=== PATIENT | female | born 1930 | race Caucasian/White ===

== ENCOUNTER → 2019-11-16 | Outpatient (CLI) | payer MEDICARE, OTHER ==
[~2019-11-16] MED LIST: ACET-897 PO; AMLO10TA PO; FOLBTAB3 PO; HYDR100T PO; METO1TAB33 PO; PANT40TA3 PO; ROSU5TAB5 PO; VENL37.598 PO; VITA250T4 PO; ZETI10TA16 PO
--- NOTE | 2019-11-18 13:39 | RADONC ---
RADIATION ONCOLOGY CONSULTATION NOTE DATE: 11/16/2019 This is a telemedicine visit. The patient was informed of the risks including security breech, technological failure, inability to perform a comprehensive physical exam which could delay or prevent an accurate diagnosis, and potential complications from treatment decisions rendered over a telemedicine platform. The patient understands and consented to the use of telehealth services phone only. 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 ECOG PERFORMANCE STATUS: Not evaluated. TELEPHONE CONSULTATION: Ms. 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 HISTORY OF PRESENT ILLNESS: The patient reports that she was in her usual state of health until Friday when she began developing vaginal bleeding. She reported that there was a significant amount of bleeding. She has a long history of a prolapsed uterus. She did present to the [facility] and hemoglobin was undertaken and found to be 7.7. A CT scan was done without contrast, which showed left-sided hydroureter and hydronephrosis. This was accompanied by a left-sided bladder mass and a cervix/vaginal mass. She was sent to [facility] and examination under anesthesia was undertaken on 11/05/2019, which revealed a bladder lesion consisting of poorly differentiated adenocarcinoma consistent with a cervical primary. Her cervical biopsy also revealed poorly differentiated carcinoma consistent with cervical primary. The examination showed extensive tumor involving the cervix to the degree that it was difficult to appreciate the os. The tumor was fixed to the left side wall consistent with her left hydroureter. The left anterior vault was involved consistent with her bladder biopsy being positive for tumor as well. There was noted to be a separate palpable disease from the tumor mass at the level of the distal rectovaginal septum. The rectal mucosa did not appear to be involved. She was therefore diagnosed with bulky pelvic disease at least stage IV A. A PET scan has not been done at this point, and I do not have a copy of the CT scan or the image from the CT scan. PAST MEDICAL HISTORY: The patient's past medical history is positive for arthritis, coronary artery disease, hypertension. She had a previous breast surgery as well as an abdominal surgery. She has had an ERCP in the past. ALLERGIES: The patient has NO KNOWN DRUG ALLERGIES. SOCIAL HISTORY: The patient does not smoke cigarettes nor abuse alcohol. FAMILY HISTORY: The patient's family history is positive for a mother with breast cancer, a father with a brain tumor and a sister with liver cancer. REVIEW OF SYSTEMS: The patient's review of systems is positive for a 35 pound weight loss over the past few months. At this time, she is having no pain or bleeding. A review of systems is otherwise noncontributory. Denies nausea, vomiting, fevers, chills, night sweats, diplopia, headaches, anxiety or depression, anorexia, visual disturbances, chest pain, urinary or bowel difficulties, bone pain, or neurological problems. PHYSICAL EXAMINATION: Physical examination was deferred at this point as per COVID-19 precautions. This was a telephone consultation. Full pelvic examination however was done by her referring doctor, Dr. Soares, at the hospital. ASSESSMENT: I had a lengthy discussion with this patient and her family by telephone. I discussed the need of a PET scan to further evaluate her present stage of disease and help us define our radiation flores. Clearly the goal of this treatment at this point would be palliative in nature. If the CT scan were to show no evidence of metastatic disease, there would be an option for more aggressive therapy if this woman were to choose so. Considering her advanced age however, and the very small likelihood of obtaining such a cure she does not wish to pursue that option. Indeed, she was questioning doing anything at all whatsoever. In light of the fact that she did have a significant bleed recently as well as pain, she is willing to undertake just palliative radiation therapy in attempt to postpone the recurrence of those issues. Once I obtain the results of the PET scan further discussion will be undertaken. At this time treatment is palliative in nature. Further discussion can then be undertaken with regards to systemic therapy but considering her advanced age I think her decision is reasonable to limit her treatment. I will continue to follow this patient closely and will keep you informed as any new developments as they occur. As always, warm regards. cc: MD Brent Lee Jr., MD
== END ==
LOC: M ONCR 13:09
PROVIDERS: ATTEND Radiology Radiation Oncology
DX: C53.9 Malignant neoplasm of cervix uteri, unspecified (principal); I10 Essential (primary) hypertension; I25.10 Atherosclerotic heart disease of native coronary artery without angina pectoris

== ENCOUNTER → 2019-11-23 | Outpatient (CLI) | payer MEDICARE, OTHER ==
--- NOTE | 2019-11-23 23:22 | REP ---
PET/CT: HISTORY: Staging cervical carcinoma. COMPARISON: CT study abdomen and pelvis 11/03/2019 from [facility]. TECHNIQUE: 47 minutes following the intravenous injection of a 8.97 mCi dose of F-18 FDG, three-dimensional PET scintigraphy is acquired from the skull base to the proximal thighs. Triplanar noncontrast CT scanning is acquired through the same anatomic range for attenuation correction, and image registration with scan parameters optimized to minimize radiation exposure to the patient. PET scintigraphy and CT datasets were fused and displayed on a workstation with multiplanar and projection display capability. PET/CT FINDINGS: Head and neck soft tissues are unremarkable. There is no abnormal hypermetabolic uptake within the chest. Normal variant skeletal muscle uptake is seen about the shoulders. There are small bilateral pleural effusions. There is visible uptake in the pleural effusions, but no hypermetabolic level uptake is seen. Maximum standard uptake value 2.01. No abnormal pulmonary parenchymal hypermetabolic uptake is seen. Granulomatous calcification is noted on the right. There is no abnormal hypermetabolic uptake in the liver or spleen. No upper abdominal liana hypermetabolic uptake is seen. Hydronephrosis is seen in the left side, as on recent CT study. There is a tiny focus of subcentimeter liana uptake at the level of the aortic bifurcation just to the left of midline, which is mildly hypermetabolic. Maximum standard uptake value 3.35. There is right common iliac liana hypermetabolic uptake, 4.07. There is bilateral internal iliac hypermetabolic adenopathy. Maximum standard uptake value in this adenopathy on the right is 8.04. On the left, maximum SUV value is 8.31. There is a large heterogeneous hypermetabolic cervical and vaginal mass, as seen on CT study. Maximum standard uptake value in this process ranges up to 17.49. This fills much of the inferior pelvis. There is a liana focus of hypermetabolic uptake in the right inguinal lymph node with maximum standard uptake value 7.32. No other hypermetabolic foci. IMPRESSION: There is a large heterogeneous hypermetabolic mass centered in the cervix and vagina, which is bulky. There is bilateral internal iliac and right common iliac hypermetabolic adenopathy. A small but metabolically active node is seen to the left of midline at the aortic bifurcation. There is a hypermetabolic node in the right groin, as well. There are small bilateral pleural effusions. No other abnormal hypermetabolic uptake is seen. Electronically Signed by Philippe Connor MD 11/24/2019 07:56 A
== END ==
LOC: M PLARAD 15:24
PROVIDERS: ATTEND Radiology Radiation Oncology
DX: C53.8 Malignant neoplasm of overlapping sites of cervix uteri (principal); J90 Pleural effusion, not elsewhere classified
CPT/HCPCS: 78815; A9552

== ENCOUNTER 2019-12-03 11:16 | Outpatient (RCR) | payer MEDICARE, OTHER ==
--- NOTE | 2019-11-25 16:20 | RADONC ---
RADIATION ONCOLOGY SIMULATION NOTE DATE: 11/23/2019 CHART NUMBER: [id number] Ms. Rubalcava was taken to the CT scan for CT simulation of her pelvic field. CT was accomplished without difficulty or discomfort. Radiation treatment planning is underway, and radiation treatments will begin subsequently. An immobilization device was created and will be used throughout the course of treatment. It was created without difficulty or discomfort. I was physically present throughout the course of CT simulation.
== END 2019-12-05 ==
LOC: M ONCR 11:16
PROVIDERS: ATTEND Radiology Radiation Oncology
DX: C53.9 Malignant neoplasm of cervix uteri, unspecified (principal)

== ENCOUNTER 2019-12-31 12:55 | Outpatient (RCR) | payer MEDICARE, OTHER ==
--- NOTE | 2019-12-12 08:26 | RADONC ---
RADIATION ONCOLOGY PROGRESS NOTE DATE: 12/06/2019 CHART NUMBER: [id number] PROGRESS NOTE: Ms. Rubalcava is presently a dose of 540 cGy to her pelvis and is tolerating treatments quite well at this point with no complaints related to her radiation therapy. She has no urinary or bowel difficulties and no bone pain. She does have some fatigue. REVIEW OF SYSTEMS: The patient's review of systems is positive for some fatigue but is otherwise noncontributory. Denies nausea, vomiting, fevers, chills, night sweats, diplopia, headaches, anxiety or depression, anorexia, weight loss, visual disturbances, chest pain, urinary or bowel difficulties, bone pain, or neurological problems. PHYSICAL EXAMINATION: The patient's skin is in good condition with no evidence of moist or dry desquamation. The remainder of her physical exam remains unchanged. Ms. Rubalcava is tolerating treatments quite well and radiation will continue as scheduled.
--- NOTE | 2019-12-17 06:56 | RADONC ---
RADIATION ONCOLOGY PROGRESS NOTE DATE: 12/13/2019 CHART #: [id number] Ms. Rubalcava is presently at a dose of 1260 cGy to her pelvis and overall is tolerating her treatments fairly well, although she is complaining of urinary and bowel incontinence. She has no pain or other significant problems. REVIEW OF SYSTEMS: The patient's review of systems is positive for urinary and bowel incontinence, but is otherwise noncontributory. Denies nausea, vomiting, fevers, chills, night sweats, diplopia, headaches, anxiety or depression, anorexia, weight loss, visual disturbances, chest pain, urinary or bowel difficulties, bone pain, or neurological problems. PHYSICAL EXAMINATION: The patient's skin is in good condition with no evidence of moist or dry desquamation. The remainder of her physical exam remains unchanged. Ms. Rubalcava us tolerating treatments quite well and radiation will continue as scheduled.
--- NOTE | 2019-12-22 10:59 | RADONC ---
RADIATION ONCOLOGY PROGRESS NOTE DATE: 12/20/2019 CHART #: [id number] Ms. Rubalcava continues to complain of diarrhea and does take two Imodium in the morning and a half of Imodium in the afternoon. In reality, she has been having this diarrhea since radiation originated after just one or two treatments. She has no other new complaints at this time. PHYSICAL EXAMINATION: The patient's skin remains in good condition with no evidence of moist or dry desquamation. I have instructed her to increase her Imodium and we will continue to follow her closely. We did discuss a treatment break considering her advanced age and the palliative nature of this radiation. At this time; however, she wishes to continue with treatment and we will continue to follow her.
== END 2020-01-04 ==
LOC: M ONCR 12:55
PROVIDERS: ATTEND Radiology Radiation Oncology
DX: C53.9 Malignant neoplasm of cervix uteri, unspecified (principal)